=== PATIENT | female | born 1955 | race Caucasian/White ===

== ENCOUNTER 2017-05-03 12:51 | Emergency (ER) | payer OTHER ==
[2017-05-03 13:06] VITALS: RESP 16
--- NOTE | 2017-05-03 13:13 | EDPHY ---
H & P Stated Complaint: FELL ONTO LEFT HIP Time Seen by Provider: 05/03/17 13:13 - Personal History Current Tetanus/Diphtheria Vaccine: Unsure - Medical/Surgical History Hx Asthma: No Hx Chronic Respiratory Disease: No Hx Diabetes: No Hx Cardiac Disease: No Hx Renal Disease: No Hx Cirrhosis: No Hx Alcoholism: No Hx HIV/AIDS: No Hx Splenectomy or Spleen Trauma: No Other PMH: HTN, ARTHRITIS - Social History Smoking Status: Never smoked Constitutional: Initial Vital Signs Temperature (C) 36.8 C 05/03/17 13:03 Heart Rate 105 H 05/03/17 13:03 Respiratory Rate 16 05/03/17 13:03 Blood Pressure 150/106 H 05/03/17 13:03 O2 Sat (%) 97 05/03/17 13:03 O2 Delivery Mode Room Air Allergies/Adverse Reactions: TOD Inhibitors Allergy (Verified 05/03/17 13:08) Home Medications: Medication Instructions Recorded Atorvastatin Calcium 05/03/17 Losartan-Hctz 05/03/17 Metoprolol 05/03/17 Ondansetron Odt [Zofran Odt 4 mg 4 mg PO Q4 PRN #10 tab 05/03/17 (RX)] oxyCODONE IR [Oxycodone Ir (*)] 5 - 10 mg PO Q6 PRN #20 tab 05/03/17 Medical Decision Making - Diagnostics Imaging Results: Imaging Impressions Hip X-Ray 05/03/17 13:17 Impression: No evidence for acute fracture. Mild degenerative change, as above. Imaging: Discussed imaging studies w/ general scrap worker Radiologist, I viewed and interpreted images myself ED Course/Re-evaluation: CHIEF COMPLAINT: Left hip injury HISTORY OF PRESENT ILLNESS: The patient is a 61 y/o female complaining of left hip pain secondary to a slip and fall today. She slipped on water at the grocery store and landed directly onto her left hip. She denies other injuries, weakness, or paresthesias. She initially was unable to walk, but eventually was able to get up and walk. She continues to have moderate pain that is somewhat reduced while sitting. She took 800mg ibuprofen for pain. She has a history of right hip arthritis, but no prior injury or disease in her left hip. REVIEW OF SYSTEMS: A 10 point review of systems was performed and is negative with the exception of the elements mentioned in the history of present illness. PHYSICAL EXAM: HR, BP, O2 Sat, RR. Temp noted General Appearance: Alert, well hydrated, appropriate, and non-toxic appearing. Head: Atraumatic without scalp tenderness or obvious injury Eyes: Pupils equal, round, reactive to light and accommodation, EOMI, no trauma , no injection. Nose: Atraumatic, no rhinorrhea, clear. Throat: Mucus membranes moist. Neck: Supple, nontender, no lymphadenopathy. Respiratory: No retractions, no distress, no wheezes, and no accessory muscle use. Lungs are clear to auscultation bilaterally. Cardiovascular: Regular rate and rhythm, no murmurs, rubs, or gallops. Good capillary refill all extremities. Gastrointestinal: Abdomen is soft, nontender, non-distended, no masses, no rebound, no guarding, no peritoneal signs. Musculoskeletal: Tenderness over left hip and pain with ROM. Otherwise normal active ROM of all extremities, atraumatic. Neurological: Alert, appropriate, and interactive. Nonfocal neuro exam. Skin: No rashes, good turgor, no nodules on palpation. Past medical history: Arthritis right hip, hypertension Past surgical history: denies Family history: noncontributory Social history: Lives in [place], , not employed. DIAGNOSTICS/PROCEDURES/CRITICAL CARE TIME: X-ray left hip: negative for acute fracture CT pelvis: negative for acute fracture DIFFERENTIAL DIAGNOSIS: The differential diagnosis for the patient's trauma included but was not limited to intracranial injury, long bone and pelvic bone fractures, spinal injury, intra-abdominal injury, and intra-thoracic injury. MEDICAL DECISION MAKING: This is a 61 y/o female who presents with left hip pain secondary to a mechanical fall today. She eventually was able to walk following the injury, but has had persisting pain. She is neurovascularly intact. No other trauma noted. Plan for left hip x-ray and pain management. 2 tabs PO Percocet and 4mg PO Zofran administered for symptoms. Reassessed patient and discussed imaging results, which are negative for acute fracture. She is able to ambulate without assistance and remains neurovascularly intact. She will be discharged home with scripts for Zofran and OxyIR and referral to ortho if needed. Standard hip pain/contusion care instructions given. - Data Points Medications Given: Discontinued Medications Ondansetron HCl (Zofran Odt) 4 mg PO EDNOW ONE Stop: 05/03/17 13:45 Last Admin: 05/03/17 13:51 Dose: 4 mg Oxycodone/Acetaminophen (Percocet 5/325) 2 tab PO EDNOW ONE Stop: 05/03/17 13:45 Last Admin: 05/03/17 13:52 Dose: 1 tab Departure - Departure Disposition: Home, Routine, Self-Care Clinical Impression: Hip pain, left Condition: Good Instructions: Hip Pain (ED) Additional Instructions: 1. Your x-ray and CT imaging here is negative for acute fracture. 2. Take 600mg ibuprofen every 6-8 hours as needed for pain for the next few days. 3. Use OxyIR as prescribed when needed for severe pain. This medication can make you sleepy. Do not use it while driving. If you develop nausea, use Zofran as prescribed. 4. Apply ice to sore areas. Expect to feel more sore tomorrow. 5. Follow up with an orthopedist for unimproved symptoms over the next week. 6. Return to the ED for worsening of condition. Referrals: Conor Leung MD [Medical Doctor] - As per Instructions Prescriptions: Ondansetron Odt [Zofran Odt 4 mg (RX)] 4 mg PO Q4 PRN #10 tab PRN Reason: Nausea/Vomiting, Use 1st oxyCODONE IR [Oxycodone Ir (*)] 5 - 10 mg PO Q6 PRN #20 tab PRN Reason: Pain, Severe Report Scribed for: Pelon Seth Report Scribed by: Triny Bishop Date of Report: 05/03/17 Time of Report: 13:49
[2017-05-03] MEDS ORDERED: ONDANSETRON DISINTEGRATING 4 MG TAB PO ONE (13:44)
[2017-05-03] MEDS ORDERED: OXYCODONE/APAP 5/325 TAB PO ONE (13:44)
[2017-05-03 14:26] VITALS: BP 144/75; PULSE 81; TEMP 97.7; O2SAT 95
== END 2017-05-03 14:34 | disposition home or self-care (01) ==
DX: S79.912A Unspecified injury of left hip, initial encounter (principal); I10 Essential (primary) hypertension; W01.0XXA Fall on same level from slipping, tripping and stumbling without subsequent striking against object, initial encounter; Y92.512 Supermarket, store or market as the place of occurrence of the external cause